=== PATIENT | female | born 1965 | race Caucasian/White ===

== ENCOUNTER 2016-04-06 08:22 | Day surgery (SDC) | payer BC ==
[~2016-04-06 08:22] MED LIST: LIDOCAINE W/ SODIUM BICARB 0.5 ML SYR ONE; Lactated Ringers 1,000 ML PRIMARY IV ONE; MIDAZOLAM 5 MG/1 ML ONE; fentaNYL Inj 100 MCG/2 ML VIAL ONE
--- NOTE | 2016-04-06 09:59 | GEN.OPNOTE ---
Colonoscopy Procedure Note Surgery Date: 04/06/16 Preoperative Diagnosis: Colon cancer screening. Postoperative Diagnosis: Colon cancer screening. Procedure: Complete colonoscopy. Surgeon: Edward Neri MD Anesthesia Provider: Ernesto Bear CRNA Anesthesia Type: MAC Indications: Patient has turned 50 and is never had a colonoscopy. Findings: Prep : [Excellent] Cecum : [Normal] Ascending : [Normal] Transverse : [Normal] Sigmoid : [Normal] Rectum : [Normal] Digital Rectal Exam : [Normal] A lubricated flexible colonoscope was inserted and passed to the blind end of the cecum. The appendiceal orifice and ileocecal valve were clearly seen. Air was aspirated as the scope was withdrawn. The entire colonoscopy was normal without polyp, tumor, neoplastic mass, infectious or inflammatory process. The scope was withdrawn completing the procedure. Patient tolerated the procedure well without complication. She was taken to outpatient surgery in stable condition. Follow-up will be with my office on an as-needed basis. It is recommended she undergo follow-up colonoscopy in 10 years.
[2016-04-06 10:04] VITALS: TEMP 97.1
[2016-04-06 10:18] VITALS: RESP 15
== END 2016-04-06 10:30 | disposition home or self-care (01) ==
LOC: SDSC 08:22
PROVIDERS: ATTEND Surgery
DX: Z12.11 Encounter for screening for malignant neoplasm of colon (principal)
CPT/HCPCS: J2250; J3010; J7120

== ENCOUNTER → 2016-07-09 | Outpatient (CLI) | payer BC ==
[2016-07-09 09:49] LABS: CHOL/HDL RATIO 3.27 RATIO (0-4.0); LDL CHOLESTEROL,CALCULATED 112.4 mg/dL
== END ==
LOC: LAB 09:13
PROVIDERS: ATTEND Family Medicine
DX: E78.5 Hyperlipidemia, unspecified (principal)
CPT/HCPCS: 36415; 80061